=== PATIENT | male | born 1990 | race American Indian/Alaskan Native ===

== ENCOUNTER 2019-02-21 08:25 | Emergency (ER) | payer SELFPAY ==
[2019-02-21 08:33] VITALS: BP 148/84
== END 2019-02-21 08:48 | disposition left against medical advice (07) ==
LOC: ED 08:25
DX: M54.9 Dorsalgia, unspecified (principal); Z53.21 Procedure and treatment not carried out due to patient leaving prior to being seen by health care provider
CPT/HCPCS: 82962